=== PATIENT | female | born 1960 | race Caucasian/White ===

== ENCOUNTER 2017-02-09 22:31 | Observation (INO) | payer OTHER ==
--- NOTE | 2017-02-09 22:44 | EDPHY ---
H & P Stated Complaint: recent hx of severe cough, now has lump in LLQ, thinks she may have hernia HPI/ROS: HPI CHIEF COMPLAINT: Abdominal pain HISTORY OF PRESENT ILLNESS: This patient very pleasant 56-year-old female, she has been sick recently with 3 days of cough. She states she has been in bed coughing. States she has been coughing for 3 days. Due to the coughing she has developed some abdominal pain left-sided. She thinks she may have an abdominal hernia. She has not had any vomiting. She did have watery nonbloody diarrhea. She states the pain has gotten progressively worse due to every time she coughs he gets worse. Denies fever. She states her coughing has gotten better. Current pain is 7/10 left-sided. Worse when she coughs. Past Medical History: Breast cancer status post bilateral mastectomy, uterine cancer. Past Surgical History: Bilateral mastectomy with reconstructive surgery, total hysterectomy, back surgery with stimulator Social History: Smokes cigars every once while, denies illicit drugs, denies alcohol, denies daily tobacco use. Family History: Noncontributory. ROS REVIEW OF SYSTEMS: A comprehensive 10 point review of systems is otherwise negative aside from elements mentioned in the history of present illness. Exam Constitutional appears well nontoxic, triage nursing summary reviewed, vital signs reviewed, awake/alert. Eyes normal conjunctivae and sclera, EOMI, PERRLA. HENT normal inspection, atraumatic, moist mucus membranes, no epistaxis, neck supple/ no meningismus, no raccoon eyes. Respiratory clear to auscultation bilaterally, normal breath sounds, no respiratory distress, no wheezing. Cardiovascular rate normal, regular rhythm, no murmur, no edema, distal pulses normal. Gastrointestinal soft, mild tender palpation left upper quadrant. I cannot appreciate a mass or bulge,, normal bowel sounds, no distension, no pulsatile mass. Genitourinary no CVA tenderness. Musculoskeletal no midline vertebral tenderness, full range of motion, no calf swelling, no tenderness of extremities, no meningismus, good pulses, neurovascularly intact. Skin pink, warm, & dry, no rash, skin atraumatic. Neurologic awake, alert and oriented x 3, AAOx3, moves all 4 extremities equally, motor intact, sensory intact, CN II-XII intact, normal cerebellar, normal vision, normal speech. Psychiatric normal mood/affect. Heme/Lymph/Immune no lymphadenopathy. Differential diagnosis includes but is not limited to and in no particular order : Hernia, incarcerated hernia, abdominal musculature strain, Bowel obstruction , appendicitis, gallbladder disease, diverticulitis, colitis, enteritis, perforated viscus, gastritis, GERD, esophagitis, urinary tract infection, pyelonephritis, kidney stones Medical Decision Making: Plan for this patient IV establishment with IV fluid bolus, IV Dilaudid 1 mg for pain control, 4 mg IV Zofran for nausea, check basic blood work. CT scan abdomen pelvis with IV contrast evaluate left upper quadrant abdominal pain. Possible hernia. Re-evaluation: 1220: Patient CT scan abdomen pelvis with IV contrast called to me by Dr. Dickson. This shows a left anterior abdominal wall rectus tear with hematoma with active extravasation on the CT scan. I have updated the patient this time. She does state that the 1 mg IV Dilaudid did have some improvement in pain, but still having ongoing pain. Will Re-dose with IV Dilaudid. I will also consult Trauma surgery for possible admission pain control. Active extracted of the anterior abdominal wall hematoma. 1229AM: I have consulted Trauma surgery Dr. Ibarra to see and evaluate this patient has abdominal wall hematoma with active extravasation. Plan will be admission to the hospitalist service with surgery consult. Also will consult interventional Radiology for possible embolization. 0120AM: I did consult [facility]. They would like for us to keep the patient in the hospital here. They do not want me to transfer to a [facility] facility. I have consult the medicine service. They agreed to admit. Surgeries also been consulted and will follow along. No acute surgical intervention needed at this time. No acute Interventional Radiology procedure need at this time. She is hemodynamically stable. Pain control. Observation. Source: Patient - Medical/Surgical History Hx Asthma: No Hx Chronic Respiratory Disease: No Hx Diabetes: No Hx Cardiac Disease: No Hx Renal Disease: No Hx Cirrhosis: No Hx Alcoholism: No Hx HIV/AIDS: No Hx Splenectomy or Spleen Trauma: No Other PMH: uterine ca, breast ca, chronic back pain, multiple back surg, orif R foot - Social History Smoking Status: Former smoker Constitutional: Initial Vital Signs Temperature (C) 37.1 C 02/09/17 22:34 Heart Rate 67 02/09/17 22:34 Respiratory Rate 18 02/09/17 22:34 Blood Pressure 88/65 L 02/09/17 22:34 O2 Sat (%) 95 02/09/17 22:34 O2 Delivery Mode Room Air Allergies/Adverse Reactions: Penicillins Allergy (Verified 02/09/17 22:39) SWELLING Home Medications: Medication Instructions Recorded Naproxen Sodium [Aleve 220 MG (*)] 220 mg PO DAILY PRN 02/09/17 Divalproex ER [Depakote ER 500 MG 500 mg PO BID 02/10/17 (*)] Medical Decision Making - Data Points Laboratory Results: Laboratory Results 02/09/17 22:52 02/09/17 22:52 Medications Given: Hydrocodone Bitart/Acetaminophen ([place] 5/325) 1 - 2 tab PO Q4HRS PRN PRN Reason: Pain, Moderate Able to Take PO Stop: 02/20/17 02:05 Last Admin: 02/10/17 20:03 Dose: 1 tab Divalproex Sodium (Depakote Er) 500 mg PO BID ISHAN Stop: 08/09/17 12:14 Last Admin: 02/10/17 20:03 Dose: 500 mg Lidocaine (Lidoderm 5%) 1 ea TD DAILY ISHAN Stop: 08/09/17 08:59 Last Admin: 02/10/17 09:19 Dose: 1 ea Lorazepam (Ativan Injection) 0.5 - 1 mg IVP Q8HRS PRN PRN Reason: Anxiety, Unable to Take PO Stop: 08/09/17 02:05 Last Admin: 02/10/17 03:08 Dose: 1 mg Melatonin (Melatonin) 3 mg PO HS ISHAN Stop: 08/09/17 20:59 Last Admin: 02/10/17 20:33 Dose: 3 mg Miscellaneous Information (Patch Removal) 1 ea TD DAILY21 ISHAN Stop: 08/09/17 20:59 Last Admin: 02/10/17 20:04 Dose: 1 ea Morphine Sulfate (Morphine) 1 - 2 mg IVP Q1HR PRN PRN Reason: Pain, Severe Unable to Take PO Stop: 02/20/17 02:05 Last Admin: 02/10/17 09:26 Dose: 2 mg Discontinued Medications Hydromorphone HCl (Dilaudid) 1 mg IVP EDNOW ONE Stop: 02/09/17 22:58 Last Admin: 02/09/17 23:01 Dose: 1 mg Hydromorphone HCl (Dilaudid) 1 mg IVP EDNOW ONE Stop: 02/10/17 00:21 Last Admin: 02/10/17 00:45 Dose: 1 mg Sodium Chloride (Ns) 1,000 mls @ 0 mls/hr IV EDNOW ONE; Wide Open PRN Reason: Protocol Stop: 02/09/17 22:58 Last Admin: 02/09/17 23:01 Dose: 1,000 mls Ondansetron HCl (Zofran) 4 mg IVP EDNOW ONE Stop: 02/09/17 22:58 Last Admin: 02/09/17 23:01 Dose: 4 mg Departure - Departure Disposition: [facility] Acute Clinical Impression: Abdominal wall bulge, Hematoma Condition: Fair
[2017-02-09] MEDS ORDERED: NS 1,000 ML IV ONE ×2 (22:57)
[2017-02-09] MEDS ORDERED: HYDROmorphONE/DILAUDID 1 MG/ML INJ IVP ONE ×2 (22:57)
[2017-02-09] MEDS ORDERED: ONDANSETRON 4 MG/2 ML VIAL IVP ONE ×2 (22:57)
[2017-02-09 23:02] LABS: PLATELET COUNT 179 10^3/uL (150-400)
[2017-02-09] MEDS ORDERED: IOPAMIDOL (ISOVUE-300) 100 ML BTL ONE ×2 (23:21)
[2017-02-09 23:34] LABS: INR 0.94 (0.83-1.16); PROTIME(PATIENT) 12.5 SEC (12.0-15.0)
[2017-02-10] MEDS ORDERED: HYDROmorphONE/DILAUDID 1 MG/ML INJ IVP ONE ×2 (00:20)
[2017-02-10] MEDS ORDERED: ONDANSETRON 4 MG/2 ML VIAL IVP PRN ×2 (02:06)
[2017-02-10] MEDS ORDERED: ACETAMINOPHEN 325 MG TAB PO PRN ×2 (02:06)
[2017-02-10] MEDS: LORazepam 2 MG/ML INJ IVP PRN ×4 (03:08→22:43)
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
[2017-02-10 06:01] LABS: PLATELET COUNT 170 10^3/uL (150-400)
--- NOTE | 2017-02-10 07:44 | HOSPPROG ---
Hospitalist Progress Note Assessment/Plan: Breif admit note. H&P dictation to follow. 56 yo F presents with several days URI sx and sever cough with development LUQ abdominal bulging. 1. rectus abdominus hematoma - surgery consulted and plans to monitor patient closely. anticipate possible discharge if no further bleeding. 2. enteritis - pt with c/o fever/chills/diarrhea. likely viral. pt afebrile. no leukocytosis. supportive care. IVF. 3. atelectasis - bibasilar on available imaging CT abdomen. incentive spirometry. mobilize. 4. abdominal pain - lidoderm patch prn. morphine. norco prn. 5. leukopenia - minimally decreased WBC likely 2/2 acute illness. continue to monitor. no neutropenia 6. hyponatremia - likely 2/2 hypovolemia in setting of dehydration. IVF hydration while patient npo overnight. 7. hypokalemia - likely related to history of diarrhea. replacement prn. repeat AM 8. hypochloremia - insetting of hyponatremia. monitor bmp with ivf hydration. 9. pruritus - acute and likely releated to recent dosing of ativan. benadryl prn. FEN - IVF while npo. electrolyte replacmeent prn. PPX - sCDs. holding anticoagulation in setting of bleeding. COR - FULL. Dispo - patient admitted to observation on medical. Objective: Vital Signs Temp Pulse Resp BP Pulse Ox 36.8 C 57 L 18 95/47 L 93 02/10/17 02:22 02/10/17 02:22 02/10/17 02:22 02/10/17 02:22 02/10/17 02:22 Laboratory Results 02/10/17 05:38 02/10/17 05:38 02/09/17 02/10/17 02/11/17 05:59 05:59 05:59 Intake Total 1000 Balance 1000 PT 12.5 SEC (12.0-15.0) 02/09/17 22:52 INR 0.94 (0.83-1.16) 02/09/17 22:52 ICD10 Worksheet Patient Problems: Problems Problem Status Onset Abdominal wall bulge Acute Hematoma Acute
--- NOTE | 2017-02-10 08:53 | GHP ---
[f rep st] HISTORY AND PHYSICAL DATE OF ADMISSION: 02/10/2017 SOURCE: Patient provides history, appears reliable. Her electronic medical record was also reviewed and case discussed with ED provider. CHIEF COMPLAINT: Cough for 3 days and left upper quadrant abdominal pain with a bulge. HISTORY OF PRESENT ILLNESS: This is a very pleasant 56-year-old female with past medical history sig nificant for breast cancer, status post bilateral mastectomy, history of uterine cancer and status po st hysterectomy and chronic back pain with history of multiple back surgeries with a stimulator repla cement and revisions, who presents to emergency department today with complaints of 3-day history of cough, fevers, chills, and diarrhea. The patient reports quite stressful living situation at this [facility]. She is currently undergoing a divorce, has been residing in hotels and motels recently while francie iting placement in an apartment. Patient reports that last several days she has been feeling quite i ll, has been feeling malaise and fatigued, resting in bed for most of the time, and suffering through rigorous coughing spells. Earlier in the day prior to admission, patient states that she developed severe sharp aching pain in her left upper quadrant with a notable bulge. The patient reports it is about the size of dill pickle, very tender with coughing, but pain was improved with rest. Additiona lly, patient overall was feeling quite unwell and initially tried to suffer through the pain. Howeve r, she reported her pain in severity increased, particularly with the coughing, continuing, and she p resents to the emergency department for evaluation, thinking she may have developed a hernia. The pa tient denies any nausea, vomiting, but has essentially been with very little oral intake. Has been t rying to drink fluids in the last several days. She has had 1 episode of nonbloody diarrhea today, a nd has endorsed some subjective fevers, chills. REVIEW OF SYSTEMS: The remainder of the review of systems was negative except as above. ALLERGIES: To penicillin. HOME MEDICATIONS: Aleve p.r.n., not taken on a daily basis. PAST MEDICAL HISTORY: Significant for breast cancer, status post bilateral mastectomy, uterine cance r, status post hysterectomy, and chronic back pain status post back surgery with multiple revisions a nd stimulator placement. PAST SURGICAL HISTORY: Significant for: 1. Bilateral mastectomy and reconstruction. 2. Total hysterectomy. 3. Again back surgery with stimulator and multiple revisions. 4. ORIF of the right foot. FAMILY HISTORY: The patient reports she has 2 children. They are healthy. Otherwise, does not know of any medical issues in her other family members. SOCIAL HISTORY: Patient currently residing in hotel. She is employed. She smokes occasionally. Sh ramila does not drink or use drugs. CODE STATUS: Full. PHYSICAL EXAMINATION: VITAL SIGNS: Upon arrival to the ED. Blood pressure is 88/65, heart rate 67, respiratory rate 18, O2 saturation 95% on room air, temperature 37.1. Vitals at time of interview a vailable: Blood pressure 101/74, heart rate 74, O2 saturation 96% on room air. temperature is 36.6. GENERAL: No acute distress until she sits up. Adult lady, who is resting quite comfortably in bed until she moves or coughs, and grimaces when that occurs. HEAD: Normocephalic, atraumatic. EYES: Extraocular muscles intact. Pupils equal, round, slightly decreased reactivity to light bilaterally but symmetric. No scleral icterus or conjunctival injection. ENT: Mucous membranes appear dry. No oropharyngeal erythema or exudates. NECK: Supple. Trachea midline. CV: Regular rate and rhythm. No murmurs, rubs, or gallops. RESPIRATORY: Lungs are clear to auscultation bilaterally. Some cranberry bog supervisor ckles on the left compared to the right base, otherwise clear. Intermittent cough, nonproductive. P atient does grimace, again cradles the left upper quadrant abdomen. : No suprapubic tenderness to palpation. No Tinajero catheter in place. EXTREMITIES: The patient does utilize a cane for ambulatio n and sitting up. She is able to move all her extremities while resting in bed. NEURO: Cranial ner ves 2-12 intact symmetric bilaterally. Patient is awake, alert, and oriented x3. No focal deficits. No facial drooping. PSYCH: Patient does appear a little bit anxious, but thought process, content and questions are appropriate, pleasant and cooperative. LABORATORY DATA: 1. WBC 3.77, H and H 15.6 and 42.9, MCV 89.9, platelet count is 179. No bands. 2. PT 12.5, INR 0.94, PTT is 33.1. 3. Sodium is 129, potassium 3.4, chloride is 94, CO2 24, anion gap 11, BUN is 18, creatinine 0.6, gl ucose 105, calcium 8.3, total bilirubin 0.1. ALT 40, AST 34, alkaline phosphatase is 53, total prote in is 5.8, albumin 3.6, lipase 123. UA: Specific gravity 1.015, pH is 6.0, otherwise negative. 4. CT abdomen and pelvis report and images reviewed, showing a left rectus abdominis hematoma with p robable active extravasation. Mildly dilated proximal small bowel with jejunal wall thickening may r epresent enteritis. Obstruction is felt to be less likely, those questionable transition point in th e midline pelvis. 5. Mild enlargement of the central bile ducts is nonspecific. No obstructing lesion identified. Bi basilar dependent atelectasis and/or scarring present. 4 mm hypodensity in the pancreatic body. ASSESSMENT AND PLAN: Pleasant 56-year-old female with history of left upper quadrant abdominal pain and bulge. 1. Rectus abdominis hematoma. Patient with a mild area of tenderness and soft tissue swelling. It is minimally tender to palpation, but patient with notable discomfort with coughing or movement. Gen [facility] surgery has seen the patient, recommended conservative management with observation and intervent ion only if there appears to be further extravasation of the hematoma, which at this time does not. 2. Enteritis. The patient has reported some diarrhea along with her abdominal discomfort, which was centered over this rectus abdominis hematoma. Continue with supportive care. IV fluids. 3. Leukopenia. Patient's white blood count only mildly decreased and is likely related to her acute illness. She does not meet systemic inflammatory response syndrome criteria. We will continue to m onitor. She is not neutropenic. 4. Hyponatremia. This likely represents hypovolemia in the setting of decreased oral intake as apple ent has been ill for the last several days and diarrhea. Continue with IV fluids and repeat a BMP in the morning. 5. Hypokalemia. Same plan as above. 6. Hypochloremia in the setting of hyponatremia. Continue with IV fluid replacement and repeat in t he morning as above. 7. Atelectasis. Incentive spirometry. Encourage mobilization. 8. Left upper quadrant abdominal pain. Supportive care. Narcotics available p.r.n. Consider Lidod erm patch daily. 9. Pruritus. Patient with complaints of itching and scratching following administration of narcotic s. Continue with pain management as patient reports that this has been helping take the edge off her pain. Plan to give the patient some Benadryl p.r.n. for symptoms. 10. Fluid, electrolyte, nutrition. IV fluid while patient remains n.p.o. pending reassessment in e morning. Electrolyte replacement p.r.n. as above. 11. Prophylaxis. Sequential compression devices, holding anticoagulation in setting of hematoma and acute bleeding. 12. Code status is full. 13. Disposition. Patient admitted to observation on the floor. /[id number]/MODL
[2017-02-10] MEDS: LIDOCAINE 5% 1 EA PATCH TD SCH ×2 (09:19)
--- NOTE | 2017-02-10 12:24 | ASMTCASEMG ---
Living Arrangements What is your living Answers: Alone arrangement? Who do you live with? Type Of Residence Type of Residence Facility Name Notes: Currently residing in a hotel Discharge Plan Comments Coordination Status Comments Notes: Pt is a 56 y/o female admitted after persistently coughing for 3 days and having abdominal pain with bulge. Pt is currently going through a divorce and staying in a hotel until her new lease start. CM met w/ pt for dispo planning to offer resources. Pt reports that she has a talk therapist and has a good rapport w/ her. Pt reports that she will most likely not have any needs at time of d/c. No therapies ordered at this time. CM available for d/c needs. Date Signed: 02/10/2017 12:24 PM Electronically Signed By:MARQUIS Baca
--- NOTE | 2017-02-10 12:48 | SOAPPROG ---
SOAP Progress Note Assessment/Plan: Assessment: Rectus hematoma feeling better wants to have meds to help with cough Non expanding. Does not need surgery as surgery could cause additional bleeding as well H/H stable DC when medically appropriate Can follow up with PCP Dr. Afshan Emery who can either recommend a surgeon within the [facility] system or can follow up with me. Contact information provided to the patient S: Feeling better. O: Abdomen about the same. No external ecchymosis. More firm on left upper abdomen Plan: 02/10/17 12:46 Objective: Vital Signs Temp Pulse Resp BP Pulse Ox 36.7 C 60 16 90/49 L 91 L 02/10/17 12:00 02/10/17 12:00 02/10/17 12:00 02/10/17 12:00 02/10/17 12:00 Laboratory Results 02/10/17 05:38 02/10/17 05:38 02/09/17 02/10/17 02/11/17 05:59 05:59 05:59 Intake Total 1000 Balance 1000 PT 12.5 SEC (12.0-15.0) 02/09/17 22:52 INR 0.94 (0.83-1.16) 02/09/17 22:52 ICD10 Worksheet Patient Problems: Problems Problem Status Onset Abdominal wall bulge Acute Hematoma Acute
--- NOTE | 2017-02-10 13:47 | HOSPPROG ---
Hospitalist Progress Note Assessment/Plan: 56 yo F with PMH of breast and uterine cancer as well as chronic pain presenting with c/o 3 days of cough and then LUQ abdominal pain and bulging found to be 2/2 recuts muscle hematoma # rectus abdominis hematoma: in the setting of prolonged coughing and likely related to same, personally reviewed abd ct with noted hematoma with concerns of likely continued active extravasation. Still quite tender in the area though no drop in h/h and abdominal exam fairly benign. Appreciate surgery following. # ? enteritis: mild abnormalities noted on abd CT in proximal small bowel, clinically does not appear to have SBO and do not suspect concurrent enteritis at this time, monitoring, tolerating diet, does not appear infected # anxiety/psychosocial stress: patient going through a divorce that has had a lot of personal and legal ramifications for her, currently staying in a hotel and has been arrested for violation of restraining orders against her and daughter. She is clearly very stressed about this though also seems to have both support etc. Anxiety likely contributing to above to some extent. # hyponatremia: resolved, likely 2/2 volume depletion # atelectasis: ambulation, IS, OOB to chair # dispo: observation status, will likely be ready to dc in am Patient new to my care. Old records reviewed/summarized as above. Care plan reviewed with Dr. Ibarra. Subjective: no significant overnight events, patient continues to have diffuse abdominal pain as well as pain in legs, anxious/emotional regarding her current social situation/divorce etc Objective: Vital Signs Temp Pulse Resp BP Pulse Ox 36.7 C 60 16 90/49 L 91 L 02/10/17 12:00 02/10/17 12:00 02/10/17 12:00 02/10/17 12:00 02/10/17 12:00 Laboratory Results 02/10/17 05:38 02/10/17 05:38 02/09/17 02/10/17 02/11/17 05:59 05:59 05:59 Intake Total 1000 Balance 1000 PT 12.5 SEC (12.0-15.0) 02/09/17 22:52 INR 0.94 (0.83-1.16) 02/09/17 22:52 awake alert nad anicteric op clear rrr no mrg, mastectomy scars cta b soft mulitple surgical scars, bs present, ttp luq no cce warm dry well perfused oriented appropriate - Time Spent With Patient Time Spent with Patient: greater than 35 minutes Time Spent with Patient: Greater than 35 minutes spent on this patients care, greater than 50% of time spent counseling, educating, and coordinating care regarding the above mentioned plan. ICD10 Worksheet Patient Problems: Problems Problem Status Onset Abdominal wall bulge Acute Hematoma Acute
[2017-02-10] MEDS: HYDROCODONE/APAP 5/325 TAB PO PRN ×4 (14:59→20:03)
[2017-02-10] MEDS: DIVALPROEX ER 500 MG TAB PO SCH ×4 (14:59→20:03)
[2017-02-10] MEDS: PATCH REMOVAL 1 EA PATCH TD SCH ×2 (20:04)
[2017-02-10] MEDS: MELATONIN 3 MG TAB PO SCH ×2 (20:33)
[2017-02-11] MEDS: LIDOCAINE 5% 1 EA PATCH TD SCH ×4 (08:10→08:11)
[2017-02-11] MEDS: DIVALPROEX ER 500 MG TAB PO SCH ×4 (08:11→21:38)
[2017-02-11] MEDS: HYDROCODONE/APAP 5/325 TAB PO PRN ×4 (08:11→23:54)
--- NOTE | 2017-02-11 08:40 | HOSPPROG ---
Hospitalist Progress Note Assessment/Plan: #Abdominal rectus sheath tear: some extravasation. H/H stable. Evaluated by Dr. Ibarra. No surgery at this time #Hypovolemic hyponatremia: resolved. Likely decreased PO intake with URI #URI: check viral panel #Diet: regular #DVT ppx: SCDS #Disp: change to inpt admission with persistent pain, monitor H/H. If stable, DC in morning Subjective: still significant pain with coughing Objective: Vital Signs Temp Pulse Resp BP Pulse Ox 36.8 C 63 16 96/62 L 97 02/11/17 08:00 02/11/17 08:00 02/11/17 08:00 02/11/17 08:00 02/11/17 08:00 Laboratory Results 02/10/17 05:38 02/10/17 05:38 02/10/17 02/11/17 02/12/17 05:59 05:59 05:59 Intake Total 1000 400 Balance 1000 400 PT 12.5 SEC (12.0-15.0) 02/09/17 22:52 INR 0.94 (0.83-1.16) 02/09/17 22:52 - Physical Exam Constitutional: uncomfortable Eyes: PERRL Ears, Nose, Mouth, Throat: moist mucous membranes, hard of hearing Cardiovascular: regular rate and rhythym Respiratory: no respiratory distress Gastrointestinal: normoactive bowel sounds, tenderness (TTP LUQ, volumtary guarding) Genitourinary: no bladder fullness Skin: warm Musculoskeletal: full muscle strength ICD10 Worksheet Patient Problems: Problems Problem Status Onset Abdominal wall bulge Acute Hematoma Acute
[2017-02-11] MEDS ORDERED: BENZONATATE 100 MG CAP PO PRN ×2 (08:47)
[2017-02-11] MEDS ORDERED: guaiFENesin/CODEINE PHOS 10 ML UDCUP PO PRN ×2 (08:47)
--- NOTE | 2017-02-11 09:25 | SOAPPROG ---
SOAP Progress Note Assessment/Plan: Assessment: HD#2 with rectus hematoma Pain controlled Non-expanding. Does not need surgical evacuation at this time H/H stable Abdominal binder for comfort, heating pack DC per hospitalists S: Feeling well. still with some mild pain LUQ. Worse with coughing O: comfortable, NAD, walking around room No increased WOB Left upper abdomen small area of induration, tender to palpation. No external ecchymosis. Nontender elsewhere Objective: Vital Signs Temp Pulse Resp BP Pulse Ox 36.8 C 63 16 96/62 L 97 02/11/17 08:00 02/11/17 08:00 02/11/17 08:00 02/11/17 08:00 02/11/17 08:00 Laboratory Results 02/10/17 05:38 02/10/17 05:38 02/10/17 02/11/17 02/12/17 05:59 05:59 05:59 Intake Total 1000 400 Balance 1000 400 PT 12.5 SEC (12.0-15.0) 02/09/17 22:52 INR 0.94 (0.83-1.16) 02/09/17 22:52 ICD10 Worksheet Patient Problems: Problems Problem Status Onset Abdominal wall bulge Acute Hematoma Acute
[2017-02-11] MEDS: PATCH REMOVAL 1 EA PATCH TD SCH ×2 (21:38)
[2017-02-11] MEDS: MELATONIN 3 MG TAB PO SCH ×2 (21:38)
[2017-02-11 23:50] VITALS: RESP 18
[2017-02-11] MEDS: LORazepam 2 MG/ML INJ IVP PRN ×2 (23:55)
[2017-02-12 08:17] VITALS: BP 97/63; PULSE 67; TEMP 98.2; O2SAT 93
[2017-02-12] MEDS: DIVALPROEX ER 500 MG TAB PO SCH ×2 (08:58)
--- NOTE | 2017-02-12 09:32 | HOSPPROG ---
Hospitalist Progress Note Assessment/Plan: #Abdominal rectus sheath tear: some extravasation. H/H stable. Evaluated by Dr. Ibarra. No surgery at this time #Hypovolemic hyponatremia: resolved. Likely decreased PO intake with URI #URI: negative viral panel. #Diet: regular #DVT ppx: SCDS #Disp: DC today Subjective: still nonproductive cough. Pain controlled Objective: Vital Signs Temp Pulse Resp BP Pulse Ox 36.8 C 67 18 97/63 L 93 02/12/17 08:00 02/12/17 08:00 02/12/17 08:00 02/12/17 08:00 02/12/17 08:00 Microbiology 02/11/17 09:10 Respiratory Panel (PCR) - Final Nasal, Sinus - Anaerobic Tube/Swab No Organism Detected Laboratory Results 02/12/17 05:22 02/10/17 05:38 02/11/17 02/12/17 02/13/17 05:59 05:59 04:59 Intake Total 400 Balance 400 PT 12.5 SEC (12.0-15.0) 02/09/17 22:52 INR 0.94 (0.83-1.16) 02/09/17 22:52 - Physical Exam Constitutional: no apparent distress Eyes: PERRL Ears, Nose, Mouth, Throat: moist mucous membranes Cardiovascular: regular rate and rhythym, no murmur, rub, or gallop Respiratory: no respiratory distress, no rales or rhonchi Gastrointestinal: no palpable masses (firm LUQ, mild TTP. No hematoma), No distension Genitourinary: no bladder fullness Skin: warm Musculoskeletal: full muscle strength ICD10 Worksheet Patient Problems: Problems Problem Status Onset Abdominal wall bulge Acute Hematoma Acute
--- NOTE | 2017-02-12 09:52 | GDS ---
[f rep st] DISCHARGE SUMMARY DISCHARGE DIAGNOSES: 1. Abdominal rectus sheath tear. 2. Hypovolemic, hyponatremia. 3. Upper respiratory infection. 4. History of breast cancer, status post bilateral mastectomy. 5. History of uterine cancer, status post hysterectomy. 6. Chronic back pain. 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 She has a stressful living situation at this time, is currently staying in a motel. She is currently undergoing a divor ce. Over the last several days, she has been having malaise, fatigue, nonproductive cough to the [facility] nt where she felt a sharp, aching pain in her left upper quadrant, with a bulge. Denies any chest pa in, dizziness, or lightheadedness. HOSPITAL COURSE BY PROBLEM: 1. Abdominal rectus sheath tear: Secondary to excessive coughing. 2. CT showed left rectus abdominis hematoma with mild active extravasation. H and H remained stable here. Patient was evaluated by surgery. No intervention warranted. Pain is improved. The patient is to follow up with her PCP at [place], and referred to a surgeon there. If not, Dr. Ibarra is more than happy to see. 3. Acute abdominal pain: Secondary to hematoma. Wrote a script for Lidoderm. 4. History of breast cancer, status post mastectomies. 5. History of uterine cancer, status post hysterectomy. DISPOSITION: Patient is stable for discharge to [facility] where she has been staying. MEDICATION: Lidoderm patch. FOLLOW UP: 1. Her PCP, Dr. Emery. 2. Surgery, if warranted, either at [place] or with Dr. Ibarra in 2 weeks. /[id number]/MODL
--- NOTE | 2017-02-12 09:52 | GDS ---
[f rep st] DISCHARGE SUMMARY DISCHARGE DIAGNOSES: 1. Abdominal rectus sheath tear. 2. Hypovolemic, hyponatremia. 3. Upper respiratory infection. 4. History of breast cancer, status post bilateral mastectomy. 5. History of uterine cancer, status post hysterectomy. 6. Chronic back pain. 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 She has a stressful living situation at this time, is currently staying in a motel. She is currently undergoing a divor ce. Over the last several days, she has been having malaise, fatigue, nonproductive cough to the [facility] nt where she felt a sharp, aching pain in her left upper quadrant, with a bulge. Denies any chest pa in, dizziness, or lightheadedness. HOSPITAL COURSE BY PROBLEM: 1. Abdominal rectus sheath tear: Secondary to excessive coughing. 2. CT showed left rectus abdominis hematoma with mild active extravasation. H and H remained stable here. Patient was evaluated by surgery. No intervention warranted. Pain is improved. The patient is to follow up with her PCP at [place], and referred to a surgeon there. If not, Dr. Ibarra is more than happy to see. 3. Acute abdominal pain: Secondary to hematoma. Wrote a script for Lidoderm. 4. History of breast cancer, status post mastectomies. 5. History of uterine cancer, status post hysterectomy. DISPOSITION: Patient is stable for discharge to [facility] where she has been staying. MEDICATION: Lidoderm patch. FOLLOW UP: 1. Her PCP, Dr. Emery. 2. Surgery, if warranted, either at [place] or with Dr. Ibarra in 2 weeks. /[id number]/MODL
--- NOTE | 2017-02-12 09:52 | GDS ---
[f rep st] DISCHARGE SUMMARY DISCHARGE DIAGNOSES: 1. Abdominal rectus sheath tear. 2. Hypovolemic, hyponatremia. 3. Upper respiratory infection. 4. History of breast cancer, status post bilateral mastectomy. 5. History of uterine cancer, status post hysterectomy. 6. Chronic back pain. 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 She has a stressful living situation at this time, is currently staying in a motel. She is currently undergoing a divor ce. Over the last several days, she has been having malaise, fatigue, nonproductive cough to the [facility] nt where she felt a sharp, aching pain in her left upper quadrant, with a bulge. Denies any chest pa in, dizziness, or lightheadedness. HOSPITAL COURSE BY PROBLEM: 1. Abdominal rectus sheath tear: Secondary to excessive coughing. 2. CT showed left rectus abdominis hematoma with mild active extravasation. H and H remained stable here. Patient was evaluated by surgery. No intervention warranted. Pain is improved. The patient is to follow up with her PCP at [place], and referred to a surgeon there. If not, Dr. Ibarra is more than happy to see. 3. Acute abdominal pain: Secondary to hematoma. Wrote a script for Lidoderm. 4. History of breast cancer, status post mastectomies. 5. History of uterine cancer, status post hysterectomy. DISPOSITION: Patient is stable for discharge to [facility] where she has been staying. MEDICATION: Lidoderm patch. FOLLOW UP: 1. Her PCP, Dr. Emery. 2. Surgery, if warranted, either at [place] or with Dr. Ibarra in 2 weeks. /[id number]/MODL
--- NOTE | 2017-02-12 10:14 | ASDISCHSUM ---
Discharge Information Plan Status:Home with No Needs Medically Cleared to Leave:02/12/2017 Discharge Date:02/12/2017 09:52 AM CM D/C Disposition:Home, Routine, Self-Care ADT D/C Disposition:Home, Routine, Self-Care Projected Discharge Date:02/12/2017 09:52 AM Transportation at D/C:Family Discharge Delay Reason: Follow-Up Date:02/12/2017 09:52 AM Discharge Slot:1 - 8:01 am - 12:00 noon Final Diagnosis:Abd rectus sheath tear, hypovolemic, hyponatremia, URI Placement Information Patient Contact Information Contact Name:PADILLA Relationship: Address:[address] Home Phone: City:[place] Phone: State/Zip Code:[place] [address] Email: Financial Information Financial Class:HMO and PPO Plans Primary Plan Desc:[place] [employer] Primary Plan Number:[id number] Secondary Plan Desc:MEDICARE OUTPATIENT Secondary Plan Number:[id number] Assessment Information [facility] Initial CM Assessment Living Arrangements What is your living Answers: Alone arrangement? Who do you live with? Type Of Residence Type of Residence Facility Name Notes: Currently residing in a hotel Discharge Plan Comments Coordination Status Comments Notes: Pt is a 56 y/o female admitted after persistently coughing for 3 days and having abdominal pain with bulge. Pt is currently going through a divorce and staying in a hotel until her new lease start. CM met w/ pt for dispo planning to offer resources. Pt reports that she has a talk therapist and has a good rapport w/ her. Pt reports that she will most likely not have any needs at time of d/c. No therapies ordered at this time. CM available for d/c needs. Date Signed: 02/10/2017 12:24 PM Electronically Signed By:MARQUIS Baca [facility] CM Progress Note CM Note CM Note Notes: Reviewed chart regarding discharge plan of care, pt's progress. Pt admitted w/ abdominal rectus sheath tear sec to excessive coughing from a URI. Per MD notes, pt to discharge home w/ family support and no identified needs. IM not signed, not applicable, pt has Luong. Pt to follow up as directed. CM available for any further issues or concerns. Current Discharge Plan: Home independently w/ family support Date Signed: 02/12/2017 10:13 AM Electronically Signed By:Yuly Alvarez RN Intervention Information
--- NOTE | 2017-02-12 10:14 | ASDISCHSUM ---
Discharge Information Plan Status:Home with No Needs Medically Cleared to Leave:02/12/2017 Discharge Date:02/12/2017 09:52 AM CM D/C Disposition:Home, Routine, Self-Care ADT D/C Disposition:Home, Routine, Self-Care Projected Discharge Date:02/12/2017 09:52 AM Transportation at D/C:Family Discharge Delay Reason: Follow-Up Date:02/12/2017 09:52 AM Discharge Slot:1 - 8:01 am - 12:00 noon Final Diagnosis:Abd rectus sheath tear, hypovolemic, hyponatremia, URI Placement Information Patient Contact Information Contact Name:PADILLA Relationship: Address:[address] Home Phone: City:[place] Phone: State/Zip Code:[place] [address] Email: Financial Information Financial Class:HMO and PPO Plans Primary Plan Desc:[place] [employer] Primary Plan Number:[id number] Secondary Plan Desc:MEDICARE OUTPATIENT Secondary Plan Number:[id number] Assessment Information [facility] Initial CM Assessment Living Arrangements What is your living Answers: Alone arrangement? Who do you live with? Type Of Residence Type of Residence Facility Name Notes: Currently residing in a hotel Discharge Plan Comments Coordination Status Comments Notes: Pt is a 56 y/o female admitted after persistently coughing for 3 days and having abdominal pain with bulge. Pt is currently going through a divorce and staying in a hotel until her new lease start. CM met w/ pt for dispo planning to offer resources. Pt reports that she has a talk therapist and has a good rapport w/ her. Pt reports that she will most likely not have any needs at time of d/c. No therapies ordered at this time. CM available for d/c needs. Date Signed: 02/10/2017 12:24 PM Electronically Signed By:MARQUIS Baca [facility] CM Progress Note CM Note CM Note Notes: Reviewed chart regarding discharge plan of care, pt's progress. Pt admitted w/ abdominal rectus sheath tear sec to excessive coughing from a URI. Per MD notes, pt to discharge home w/ family support and no identified needs. IM not signed, not applicable, pt has Luong. Pt to follow up as directed. CM available for any further issues or concerns. Current Discharge Plan: Home independently w/ family support Date Signed: 02/12/2017 10:13 AM Electronically Signed By:Yuly Alvarez RN Intervention Information
--- NOTE | 2017-02-12 10:14 | ASDISCHSUM ---
Discharge Information Plan Status:Home with No Needs Medically Cleared to Leave:02/12/2017 Discharge Date:02/12/2017 09:52 AM CM D/C Disposition:Home, Routine, Self-Care ADT D/C Disposition:Home, Routine, Self-Care Projected Discharge Date:02/12/2017 09:52 AM Transportation at D/C:Family Discharge Delay Reason: Follow-Up Date:02/12/2017 09:52 AM Discharge Slot:1 - 8:01 am - 12:00 noon Final Diagnosis:Abd rectus sheath tear, hypovolemic, hyponatremia, URI Placement Information Patient Contact Information Contact Name:PADILLA Relationship: Address:[address] Home Phone: City:[place] Phone: State/Zip Code:[place] [address] Email: Financial Information Financial Class:HMO and PPO Plans Primary Plan Desc:[place] [employer] Primary Plan Number:[id number] Secondary Plan Desc:MEDICARE OUTPATIENT Secondary Plan Number:[id number] Assessment Information [facility] Initial CM Assessment Living Arrangements What is your living Answers: Alone arrangement? Who do you live with? Type Of Residence Type of Residence Facility Name Notes: Currently residing in a hotel Discharge Plan Comments Coordination Status Comments Notes: Pt is a 56 y/o female admitted after persistently coughing for 3 days and having abdominal pain with bulge. Pt is currently going through a divorce and staying in a hotel until her new lease start. CM met w/ pt for dispo planning to offer resources. Pt reports that she has a talk therapist and has a good rapport w/ her. Pt reports that she will most likely not have any needs at time of d/c. No therapies ordered at this time. CM available for d/c needs. Date Signed: 02/10/2017 12:24 PM Electronically Signed By:MARQUIS Baca [facility] CM Progress Note CM Note CM Note Notes: Reviewed chart regarding discharge plan of care, pt's progress. Pt admitted w/ abdominal rectus sheath tear sec to excessive coughing from a URI. Per MD notes, pt to discharge home w/ family support and no identified needs. IM not signed, not applicable, pt has Luong. Pt to follow up as directed. CM available for any further issues or concerns. Current Discharge Plan: Home independently w/ family support Date Signed: 02/12/2017 10:13 AM Electronically Signed By:Yuly Alvarez RN Intervention Information
== END 2017-02-12 09:52 | disposition home or self-care (01) ==
LOC: F3E 02-10 02:07
PROVIDERS: ADMIT Family Medicine; ATTEND Internal Medicine
PROC: 3E0337Z Introduction of Electrolytic and Water Balance Substance into Peripheral Vein, Percutaneous Approach (ICD-10-PCS; principal; 2017-02-10)
DX: S30.1XXA Contusion of abdominal wall, initial encounter (principal); S39.011A Strain of muscle, fascia and tendon of abdomen, initial encounter; X50.0XXA Overexertion from strenuous movement or load, initial encounter; E87.1 Hypo-osmolality and hyponatremia; J06.9 Acute upper respiratory infection, unspecified; E87.8 Other disorders of electrolyte and fluid balance, not elsewhere classified; R10.12 Left upper quadrant pain; E87.6 Hypokalemia; E86.1 Hypovolemia; K52.9 Noninfective gastroenteritis and colitis, unspecified; D72.819 Decreased white blood cell count, unspecified; J98.11 Atelectasis; L29.9 Pruritus, unspecified; G89.29 Other chronic pain; M54.9 Dorsalgia, unspecified; Z63.79 Other stressful life events affecting family and household; Z87.891 Personal history of nicotine dependence; Z85.42 Personal history of malignant neoplasm of other parts of uterus; Z85.3 Personal history of malignant neoplasm of breast; Z90.13 Acquired absence of bilateral breasts and nipples; Z90.710 Acquired absence of both cervix and uterus; Z88.0 Allergy status to penicillin
CPT/HCPCS: 74177; 96361; 96374; 96375; 96376; 99285; G0378; J1170; J2060; J2405; Q9967

== ENCOUNTER 2017-02-15 23:04 | Emergency (ER) | payer OTHER ==
[2017-02-15 23:13] VITALS: TEMP 98.2
--- NOTE | 2017-02-15 23:21 | EDPHY ---
H & P Stated Complaint: COUGH, ABD PAIN SINCE 1300, "LEAKING HEMATOMA", HERE LAST WEEK , APPT [facility] HPI/ROS: HPI CHIEF COMPLAINT: Abdominal pain HISTORY OF PRESENT ILLNESS: This is Very pleasant 56-year-old female who I recently saw and evaluated for abdominal pain subsequently found to have a rectus sheath abdominal wall hematoma. This was on February 10, she now presents back to the emergency room 5 days later with ongoing left upper quadrant abdominal pain. Patient states it is worse when she coughs. She states that she does not have a pain medication. She does not want to be readmitted to the hospital however she would like pain control here in emergency room. She does not feel that her abdomen is more swollen. She only gets significant pain when she coughs. Current pain level 6/10. Located left upper quadrant. Past Medical History: Recent admission for abdominal rectus sheath hematoma, breast cancer, uterine cancer Past Surgical History: Bilateral mastectomy reconstructive surgery, hysterectomy Social History: Denies daily use drugs alcohol tobacco products. Family History: Noncontributory. ROS REVIEW OF SYSTEMS: A comprehensive 10 point review of systems is otherwise negative aside from elements mentioned in the history of present illness. Exam Constitutional triage nursing summary reviewed, vital signs reviewed, awake/ alert. Eyes normal conjunctivae and sclera, EOMI, PERRLA. HENT normal inspection, atraumatic, moist mucus membranes, no epistaxis, neck supple/ no meningismus, no raccoon eyes. Respiratory clear to auscultation bilaterally, normal breath sounds, no respiratory distress, no wheezing. Cardiovascular rate normal, regular rhythm, no murmur, no edema, distal pulses normal. Gastrointestinal soft however mild tenderness palpation left upper quadrant, no rebound, no guarding, normal bowel sounds, no distension, no pulsatile mass. Genitourinary no CVA tenderness. Musculoskeletal no midline vertebral tenderness, full range of motion, no calf swelling, no tenderness of extremities, no meningismus, good pulses, neurovascularly intact. Skin pink, warm, & dry, no rash, skin atraumatic. Neurologic awake, alert and oriented x 3, AAOx3, moves all 4 extremities equally, motor intact, sensory intact, CN II-XII intact, normal cerebellar, normal vision, normal speech. Psychiatric normal mood/affect. Heme/Lymph/Immune no lymphadenopathy. Differential diagnosis includes but is not limited to and in no particular order : Abdominal wall rectus sheath hematoma, musculoskeletal strain, abdominal wall strain with coughing Bowel obstruction, appendicitis, gallbladder disease, diverticulitis, colitis, enteritis, perforated viscus, gastritis, GERD, esophagitis, urinary tract infection, pyelonephritis, kidney stones Medical Decision Making: Plan for this patient IV establishment check CBC H&H, IV pain control with IV Dilaudid 1 mg, IV Zofran 4 mg for nausea, and re- evaluate. Re-evaluation: 2346: H&H reviewed. Stable. 1220: Re-examination at this time this patient is resting comfortably. Abdomen soft nontender. She is up ambulatory throughout the room playing music and laughing. Her H&H are stable. She is feeling better with IV Dilaudid. Will allow her to go home with a limited supply of [place]. Follow up with her primary care doctor return precautions given. Specifically she understands return emergency room if she develops worsening abdominal pain fever vomiting. Source: Patient - Personal History Current Tetanus/Diphtheria Vaccine: Yes Tetanus Vaccine Date: 2015 - Medical/Surgical History Hx Asthma: No Hx Chronic Respiratory Disease: No Hx Diabetes: No Hx Cardiac Disease: No Hx Renal Disease: No Hx Cirrhosis: No Hx Alcoholism: No Hx HIV/AIDS: No Hx Splenectomy or Spleen Trauma: No Other PMH: uterine ca, breast ca, chronic back pain, multiple back surg, orif R foot, TORN ABD MUSCLE/HEMATOMA - Social History Smoking Status: Former smoker Constitutional: Initial Vital Signs Temperature (C) 36.8 C 02/15/17 23:10 Heart Rate 73 02/15/17 23:10 Respiratory Rate 18 02/15/17 23:10 Blood Pressure 113/82 H 02/15/17 23:10 O2 Sat (%) 95 02/15/17 23:10 O2 Delivery Mode Room Air Allergies/Adverse Reactions: Penicillins Allergy (Verified 02/15/17 23:09) SWELLING Home Medications: Medication Instructions Recorded Divalproex ER [Depakote ER 500 MG 500 mg PO BID 02/10/17 (*)] Hydrocodone/APAP 5/325 [[place] 1 - 2 tab PO Q4H PRN #14 tab 02/16/17 5/325] Medical Decision Making - Data Points Laboratory Results: Laboratory Results 02/15/17 23:40 02/15/17 23:40 02/15/17 02/15/17 23:40 23:40 WBC 8.21 10^3/uL 10^3/uL (3.80-9.50) RBC 4.95 10^6/uL 10^6/uL (4.18-5.33) Hgb 16.0 g/dL g/dL (12.6-16.3) Hct 45.5 % % (38.0-47.0) MCV 91.9 fL fL (81.5-99.8) MCH 32.3 pg pg (27.9-34.1) MCHC 35.2 g/dL g/dL (32.4-36.7) RDW 13.3 % % (11.5-15.2) Plt Count 283 10^3/uL 10^3/uL (150-400) MPV 10.6 fL fL (8.7-11.7) Neut % (Auto) 47.4 % % (39.3-74.2) Lymph % (Auto) 36.7 % % (15.0-45.0) [place] % (Auto) 11.6 % % (4.5-13.0) Eos % (Auto) 2.7 % % (0.6-7.6) Baso % (Auto) 0.6 % % (0.3-1.7) Nucleat RBC Rel Count 0.0 % % (0.0-0.2) Absolute Neuts (auto) 3.90 10^3/uL 10^3/uL (1.70-6.50) Absolute Lymphs (auto) 3.01 10^3/uL H 10^3/uL (1.00-3.00) Absolute Monos (auto) 0.95 10^3/uL H 10^3/uL (0.30-0.80) Absolute Eos (auto) 0.22 10^3/uL 10^3/uL (0.03-0.40) Absolute Basos (auto) 0.05 10^3/uL 10^3/uL (0.02-0.10) Absolute Nucleated RBC 0.00 10^3/uL 10^3/uL (0-0.01) Immature Gran % 1.0 % % (0.0-1.1) Immature Gran # 0.08 10^3/uL 10^3/uL (0.00-0.10) Sodium 138 mEq/L mEq/L (134-144) Potassium 4.8 mEq/L mEq/L (3.5-5.2) Chloride 103 mEq/L mEq/L (97-110) Carbon Dioxide 23 mEq/l mEq/l (22-31) Anion Gap 12 mEq/L mEq/L (8-16) BUN 18 mg/dL mg/dL (7-23) Creatinine 0.6 mg/dL mg/dL (0.6-1.0) Estimated GFR > 60 Glucose 84 mg/dL mg/dL (70-100) Calcium 9.2 mg/dL mg/dL (8.5-10.4) Medications Given: Discontinued Medications Hydromorphone HCl (Dilaudid) 1 mg IVP EDNOW ONE Stop: 02/15/17 23:31 Last Admin: 02/15/17 23:35 Dose: 1 mg Sodium Chloride (Ns) 1,000 mls @ 0 mls/hr IV EDNOW ONE; Wide Open PRN Reason: Protocol Stop: 02/15/17 23:31 Last Admin: 02/15/17 23:36 Dose: 1,000 mls Ondansetron HCl (Zofran) 4 mg IVP EDNOW ONE Stop: 02/15/17 23:31 Last Admin: 02/15/17 23:35 Dose: 4 mg Departure - Departure Disposition: Home, Routine, Self-Care Clinical Impression: Abdominal wall hematoma Qualifiers: Encounter type: initial encounter Qualified Code(s): S30.1XXA - Contusion of abdominal wall, initial encounter Condition: Good Instructions: Contusion in Adults (ED), Abdominal Pain (ED), Hematoma (ED) Additional Instructions: 1. Return emergency room immediately if he develops worsening abdominal pain fever vomiting. 2. Please follow up with your primary care doctor. Referrals: [facility] [Other] - As per Instructions Prescriptions: Hydrocodone/APAP 5/325 [[place] 5/325] 1 - 2 tab PO Q4H PRN #14 tab PRN Reason: Pain, Moderate
[2017-02-15] MEDS ORDERED: HYDROmorphONE/DILAUDID 1 MG/ML INJ ONE (23:28)
[2017-02-15] MEDS ORDERED: HYDROmorphONE/DILAUDID 1 MG/ML INJ IVP ONE (23:30)
[2017-02-15] MEDS ORDERED: NS 1,000 ML IV ONE (23:30)
[2017-02-15] MEDS ORDERED: ONDANSETRON 4 MG/2 ML VIAL IVP ONE (23:30)
[2017-02-15 23:45] LABS: PLATELET COUNT 283 10^3/uL (150-400)
[2017-02-16 01:41] VITALS: BP 132/74; PULSE 75; RESP 16; O2SAT 96
== END 2017-02-16 01:43 | disposition home or self-care (01) ==
DX: M79.81 Nontraumatic hematoma of soft tissue (principal); E86.9 Volume depletion, unspecified; Z85.3 Personal history of malignant neoplasm of breast; Z85.42 Personal history of malignant neoplasm of other parts of uterus; Z87.891 Personal history of nicotine dependence; Z90.710 Acquired absence of both cervix and uterus
CPT/HCPCS: 96374; J1170; J2405